=== PATIENT | male | born 1990 | race Caucasian/White ===

== ENCOUNTER 2025-03-05 16:34 | Emergency (ER) | payer BC, SELFPAY ==
--- NOTE | ~2025-03-05 | XR_ITS ---
CLINICAL HISTORY: heard pop left lower back lifting weights 3 views lumbar spine Comparison: None provided Findings: Normal vertebral body alignment. No acute fractures or dislocation. Vertebral body heights are well-maintained. Moderate narrowing with endplate spurring at L5-S1. Moderate facet arthrosis. IMPRESSION: 1. No acute fracture in the lumbar spine. 2. Moderate degenerative changes at L5-S1. This document has been electronically signed by: Mindy Garcia DO on 03/05/2025 19:46:34
[2025-03-05 16:44] VITALS: BP 134/74; PULSE 86; O2SAT 98
[2025-03-05 16:45] VITALS: BP 130/81; PULSE 78; RESP 18; TEMP 36.4; O2SAT 95; BMI 31.7
--- OUTSIDE RECORDS SUMMARY | 2025-03-05 17:06 | XMS_ITS | Clinical Summary ---
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 18 g Active acyclovir (ZOVIRAX) 5 % cream Apply topically daily as needed. Active Active Problems Problem Noted Date Diagnosed Date Epistaxis 07/21/2024 Assessment & Plan (07/21/2024 3:26 PM EST): Frequent nosebleeds with complaints of lesion in left nare. He is using Flonase inconsistently. I have recommended he discontinue Flonase and begin using a humidifier nightly. Encouraged to stop picking! Referral placed to ENT. Elevated LFTs 07/21/2024 Assessment & Plan (07/21/2024 3:17 PM EST): Reports elevated LFTs in past, suspected to be hepatic steatosis. I have asked him to go for lab work today. Other headache syndrome 07/21/2024 Assessment & Plan (09/30/2024 2:37 PM EST): Jh presents for increased frequency of headaches. No red flag symptoms. ? Increase after muscular strain in neck. Encouraged to begin gentle stretching of head, neck, and shoulders. Discussed can try stronger treatment to break the headache. Advised can take ibuprofen 600mg, acetaminophen 1000mg, and Benadryl 25mg together. Also, discussed can try beginning magnesium 400mg nightly for prophylaxis. Given his has been occurring for only a week and symptoms are mild will hold on on further diagnostics/prescription management and he is agreeable. Encouraged to follow up if symptoms fail to improve or worsen. Assessment & Plan (07/21/2024 3:25 PM EST): Infrequent, worse with stress. Encouraged to work on stress reduction. Encouraged to get adequate sleep and stay hydrated. Relieved with ibuprofen. Will continue to monitor. Cubital tunnel syndrome on left 07/31/2023 Onychomycosis 04/25/2014 Herpes labialis 02/09/2014 Encounters Date Type Department Care Team Description 01/06/2025 11:50 AM EDT Office Visit [facility] [address] [address] Daniella Guaman, JC Bilateral otitis media, unspecified otitis media type (Primary Dx); Cough; Acute upper respiratory infection from Last 3 Months Immunizations Immunization Administration Dates Next Due Influenza Quadrivalent MDCK Preservative Free IM 08/20/2023 Td (adult),2 Lf Tetanus Toxoid, PF, Adsorbed 07/2012 Tdap 07/21/2024,04/25/2014 Social History Tobacco Use Types Packs/Day Years Used Date Smoking Tobacco: Never Smokeless Tobacco: Never Tobacco Cessation:Counseling Given: Not Answered Alcohol Use Standard Drinks/Week Comments Yes 0 (1 standard drink = 0.6 oz pur e alcohol) 4-5 per week Child or Family Care Answer Date Record ed Do you have problems with on e of the following making it difficult for you to work, study, or receive health care? No 07/21/2024 Education Answer Date Recorded Are you interested in help w ith more adult education (for example, completing high school, GED, job training, learning the [place] language, technical skills, or developing parenting skills)? No 07/21/2024 Are you concerned about learning? Not on file 07/21/2024 No 07/21/2024 Yes 07/21/2024 Food Answer Date Recorded Within the past 6 months we worried whether our food would run out before we got money to buy more. Never True 07/21/2024 Within the past 6 months the food we bought just didn't last and we didn't have enough money to get more. Never True Residential Stability Answer Date Recor ded What is your housing situation today? I have randy lopez 07/21/2024 How many times have you move d in the past 12 months? Zero (I did not move) 07/21/2024 Paying for Meds Answer Date Recorded Do you have trouble paying for medicines? No 07/21/2024 Paying Utility Bills Answer Date Record ed Do you have trouble paying your heating or elect ricity bill? No 07/21/2024 Transportation Answer Date Recorded Has the lack of transportati on kept you from medical appointments or from getting medications? No 07/21/2024 Unemployment Answer Date Recorded Are you currently unemployed or working on a part-time or temporary basis, and looking for work? No 07/21/2024 Digital Access Answer Date Recorded No 07/21/2024 Yes 07/21/2024 Do you have reliable internet access at home? Ye s 07/21/2024 Do you have a device (e.g., phone, tablet, computer) with a working camera? Yes 07/21/2024 Intimate Partner Violence Answer Date R ecorded Are you denied basic needs s uch as food, clothing, or medical care? No 07/21/2024 In the past 12 months have y ou been in a relationship with a person who hurts, threatens, or tries to control you? No 07/21/2024 Are you denied basic needs s uch as food, clothing, or medical care? No 07/21/2024 In the past 12 months have y ou been in a relationship with a person who hurts, threatens, or tries to control you? No 07/21/2024 Sex and Gender Information Value Date Recorded Sex Assigned at Male 11/08/2023 6:42 PM EDT Legal Sex Male 9:04 PM EDT Gender Identity Male 11/08/2023 6:42 PM EDT Sexual Orientation Not on file Last Filed Vital Signs Vital Sign Reading Time Taken Comments Blood Pressure 132/93 01/06/2025 12:01 PM EDT Pulse 80 01/06/2025 11:50 AM EDT Temperature 36.6 C (97.8 F) 01/06/2025 11:50 AM EDT Respiratory Rate 16 01/06/2025 11:50 AM EDT Oxygen Saturation 95% 01/06/2025 11:50 AM EDT Inhaled Oxygen Concentration - - Weight 90.7 kg (200 lb) 01/06/2025 11:50 AM EDT Height 175.3 cm (5' 9 ) 01/06/2025 11:50 AM EDT Body Mass Index 29.53 01/06/2025 11:50 AM EDT Plan of Treatment Health Maintenance Due Date Last Done Comments COVID-19 VACCINE (2023-2 5 season) 2024 08/21/2021, 11/15/2020, 10/24/2020 DEPRESSION SCREENING 07/21/2025 07/21/2024 Adult Td,Tdap Booster 07/21/2034 07/21/2024 , 04/25/2014, 04/26/2013 HEPATITIS C SCREENING Completed 07/21/2024 HIV ONE-TIME SCREENING (18-6 5 YEARS) Completed 07/21/2024 SMOKING STATUS SCREENING (On ce After 26 Yrs) Completed 01/06/2025 HEPATITIS A VACCINES Aged Out No long er eligible based on patient's age to complete this topic HIB VACCINES Aged Out No longer eligi ble based on patient's age to complete this topic MENINGOCOCCAL VACCINES (ACWY) Aged Out No longer eligible based on patient's age to complete this topic MENINGOCOCCAL VACCINES (B) Aged Out N o longer eligible based on patient's age to complete this topic PNEUMOCOCCAL VACCINES (0-49 years) Aged Out No longer eligible b ased on patient's age to complete this topic Medical Devices Not on file Procedures Procedure Name Priority Date/Time Associated Diagnosis Comments POCT RAPID STREP A Routine 01/06/2025 12 :08 PM EDT Cough POCT COVID-19 RT-PCR/INFLUENZA A & B/RSV CEPHEID Routine 01/06/2025 12:06 PM EDT Cough HEPATITIS C ANTIBODY, QUALITATIVE Routine 07/21/2024 2:59 PM EST Screen for STD (sexually transmitted disease) from Last 3 Months or Most Recently Relevant to Health Maintenance Results * POCT Rapid Strep A (01/06/2025 12:08 PM EDT) [facility] Strep A, PCR Not Detected Not Detected [facility] [place] 01/06/2025 12:0 8 PM EDT 01/06/2025 12:36 PM EDT Daniella Guaman CNP POINT OF CARE TEST ORDE RABLES Final Result [facility] [address] [address], [facility] [phone] * POCT COVID-19 RT-PCR/Influenza A & B/RSV (Cepheid) (01/06/2025 12:06 PM EDT) [facility] RSV PCR Negative Negative [facility] [place] SARS-CoV-2 (COVID-19) Negative Negative [facility] [place] POC Influenza A PCR Negative Negative [facility] [place] POC Influenza B PCR Negative Negative [facility] [place] 01/06/2025 12:0 6 PM EDT 01/06/2025 12:47 PM EDT Daniella Guaman CNP POINT OF CARE TEST ORDE RABLES Final Result [facility] [address] [address], [facility] [phone] * Hepatitis C antibody, qualitative (07/21/2024 2:59 PM EST) [facility] HCV NON-REACTIV E NON-REACTI VE [facility] Blood 07/21/2024 2:59 PM EST 07/21/2024 3:04 PM EST Shonna Travis FLIGHT PHYSICIAN LAB BLOOD ORDERABLES Final R esult [address] [address] from Last 3 Months or Most Recently Relevant to Health Maintenance [place] [address] [place] [address] [facility] [address] [address] [place] [address] [facility] [place] [address] [place] [address] [place] [address] Care Teams Veneer Taping Machine Offbearer Relationship Specialty Start Date End Date Shonna RoblesJC [address] [facility], [facility] [address] [place] [address] [email or web address] PCP - General Nurse Practitioner 07/21/24 Jeremy Gross MD [address] [facility], [facility] [address] [place] [address] [email or web address] Insurance Assigned Provider 10/30/24 Additional Source Comments The information contained in this document represents components of the legal health record. It is not the complete legal health record.[facility]
[2025-03-05 18:19] VITALS: BP 122/79; PULSE 79; RESP 16; O2SAT 98
--- NOTE | 2025-03-05 18:39 | ED_ITS ---
HPI - Back Pain/Injury General Chief Complaint: Back Pain/Injury Stated Complaint: back pain after gym session Time Seen by Provider: 03/05/25 18:21 Source: patient and EMS Mode of arrival: EMS Limitations: no limitations History of Present Illness ED Provider: EDNA DIAZ PA-C HPI Narrative: 34 year old male with no significant pmhx presents to ED today via EMS for evaluation of low back pain x1 hour. 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 Pain radiates into his left thigh. Reports falling to the ground due to the pain. No head strike, no LOC. He is not on thinners. A bystander at the gym called EMS and he was transported to the ED for further evaluation. At present, pain in lower back remains with radiation to left thigh. Pain is described as sharp, constant, and close to midline but slightly to the left. Pain is worse with any movement. 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 Denies hx of IVDU. Denies hx of spinal surgery. Denies fever, chills, neck pain, bowel or bladder incontinence or retention, numbness/tingling/weakness in the lower extremities, dysuria, hematuria, saddle anesthesia. Related Data Previous Rx's ?Medication ?Instructions ?Recorded cyclobenzaprine 5 mg tablet 5 mg PO Q8H 3 days #9 tabs 03/05/25 lidocaine 5 % topical patch 1 patch topical DAILY #15 ea 03/05/25 (Lidoderm) Allergies Allergy/AdvReac Type Severity Reaction Status Date / Time No Known Allergies Allergy Unverified 03/05/25 16:51 Review of Systems Review of Systems: Constitutional: No fever, chills, fatigue, night sweats, weight changes ENT/Mouth: No ear pain, hearing loss, nasal congestion, sinus pain, rhinorrhea, sore throat Eyes: No eye pain, swelling, redness, vision changes, discharge Cardio: No chest pain, palpitations, PRICE, orthopnea, peripheral edema Pulm: No SOB, cough, sputum, wheezing, dyspnea, hemoptysis GI: No nausea, vomiting, hematemesis, abdominal pain, diarrhea, constipation, hematochezia, melena : No irregular bleeding, dysuria, frequency, urgency, hesitancy, hematuria, flank pain, urinary flow changes, urinary incontinence or retention MSK: +back pain, No neck pain, joint pain, myalgias Skin: No lesions, rashes Neuro: No weakness, numbness, paresthesias, LOC, dizziness, headache All other systems reviewed and are negative. [facility] Past Medical History Attestation statement: The following information was validated with the patient. Source: old records reviewed and nursing notes reviewed Physical Exam Vital Signs: Vital Signs: Last Vital Signs Temp 97.8 F 03/05/25 21:12 Pulse 72 03/05/25 21:12 Resp 16 03/05/25 21:12 BP 137/80 03/05/25 21:12 Pulse Ox 96 03/05/25 21:12 O2 Del Method Room Air 03/05/25 21:12 BMI result Body Mass Index 31.7 vital signs stable General: Well appearing, in no acute distress. Skin: Warm, dry, intact. No rashes or lesions. Head: Normocephalic, atraumatic. EENT: Hearing is intact b/l. Cardiac: Chest wall symmetric. RRR. Lungs: Normal respiratory effort without accessory muscle use. Back: Tenderness to palpation over midline lumbar region/ left lumbar paraspinal region at L2/L3 level. No step off deformity. Ext: Upper and lower extremities atraumatic, without tenderness, deformity, swelling or erythema. Strength 5/5 to upper extremities. difficult to assess strength of left leg unwilling to lift. + straight leg raise to left Neuro: AOx3. Normal speech. CN 2-12 grossly intact.. No saddle anesthesia. Sensation intact to light touch Course Course Course Narrative: xr lumbar spine unremarkable. concern for lumbar strain/ lumbar radiculopathy. patient treated with toradol + lido patch + flexeril with improvment. able to stand and ambulate with steady gait. no neuro deficits. will send him home with pain control + PCP follow up. his friend who is at bedside will be driving him home today. Patient has remained stable throughout ED visit today. Discussed worrisome signs and symptoms and when to return to the ED. All questions answered at this time. Patient is agreeable with disposition and stable for discharge. Medications Administered Discontinued Medications Generic Name Dose Route Start Last Admin Trade Name Freq PRN Reason Stop Dose Admin Cyclobenzaprine HCl 10 mg 03/05/25 18:50 03/05/25 19:28 Cyclobenzaprine Hcl 10 Mg Tablet PO 03/05/25 18:51 10 mg ONCE ONE Administration Ketorolac Tromethamine 30 mg 03/05/25 18:50 03/05/25 19:28 Ketorolac Tromethamine 30 Mg/Ml Vial IM 03/05/25 18:51 30 mg ONCE ONE Administration Lidocaine 1 patch 03/05/25 18:50 03/05/25 19:27 Lidocaine 4 % Patch Adh..Patch TRANSDERMA 03/05/25 18:51 1 patch ONCE ONE Administration Protocol Medical Decision Making Medical Decision Making MDM Narrative: 34 year old male with no significant pmhx presents to ED today via EMS for evaluation of low back pain x1 hour. Vital signs stable. uncomfortable appearing however in nad. Physical exam relevant for + straight leg on left with te nderness to palpation at L2-L3 level to the left of midline. Concern for MSK sprain/strain, fracture, subluxation, disc herniation, sciatica. Unlikely cord compression, cauda equina, Guillain-[place], epidural abscess. Plan for imaging, pain control, and re-evaluation. Differential Diagnosis Differential Diagnoses: The differential diagnosis associated with the presentation includes as above Admission/Observation Not indicated. Independent Interpretation I performed an independent interpretation of an: Plain X-Ray Interpretation: xr lumbar spine without fracture Radiology Impression Discussion of test interpretation with radiology: I have reviewed the radiologist's reading. Radiologist Impression: Procedure(s): XR lumbar spine 2-3V Accession Number(s): [id number] cc: Physician,Unknown ; Edna Diaz~ CLINICAL HISTORY: heard pop left lower back lifting weights 3 views lumbar spine Comparison: None provided Findings: Normal vertebral body alignment. No acute fractures or dislocation. Vertebral body heights are well-maintained. Moderate narrowing with endplate spurring at L5-S1. Moderate facet arthrosis. IMPRESSION: 1. No acute fracture in the lumbar spine. 2. Moderate degenerative changes at L5-S1. This document has been electronically signed by: Mindy Garcia DO on 03/05/2025 19:46:34 Independent Historian Clinical information obtained from an independent historian. History obtained fr om or confirmed by: EMS External Record Review External record reviewed: Inpatient record Prescription Management I considered prescription management with: Pain Medication and Other (Muscle relaxer) Social Determinants Patient?s care significantly limited by Social Determinants of Health including: Other Social Determinant of Health Critical Care Time Critical Care Time Critical Care Time: No Discharge Plan Discharge Clinical Impression: Strain of lumbar region Patient Disposition: Home, Self-Care Instructions: Low Back Strain (ED), Lower Back Exercises (ED) Additional Instructions: You were evaluated in the Emergency Department today for your back pain.? Your evaluation did not show signs of medical conditions requiring emergent intervention at this time. Avoid bending, lifting, or twisting. Use ice several times per day for 20 minutes at a time for the next 48 hours and then change to heat. I recommend you take 600mg ibuprofen every 6 hours or tylenol 650mg every 6 hours as needed for pain. If needed, you can alternate these medications so that you take one medication every 3 hours. For example, at noon take ibuprofen, then at 3pm take tylenol, then at 6pm take ibuprofen. Flexeril is a muscle relaxer. Take this at night as it makes you drowsy. Do not drive, drink alcohol, or operate machinery while taking it. Lidoderm patches are numbing patches. Apply to painful areas. Please schedule an appointment for follow-up with your primary care provider this week for further evaluation of your symptoms. Return to the Emergency Department if you experience worsening back pain, difficulty walking, fevers, numbness, tingling, incontinence, or any other concerning symptoms. In the case of an emergency call 911. Prescriptions: New cyclobenzaprine 5 mg tablet 5 mg PO Q8H 3 Days Qty: 9 0RF lidocaine [Lidoderm] 5 % adhesive patch,medicated 1 patch topical DAILY Qty: 15 0RF Rx Instructions: leave on most painful area for up to 12 hrs Referrals: Physician,Devonte J [Primary Care Provider, Medical] Interventions: ED Discharge Assessment Last Done: 03/05/25 21:12 Discharge Date/Time: 03/05/25 21:13 Print Language: Dominican
[2025-03-05] MEDS: Lidocaine 4 % Patch ADH..PATCH 1 PATCH TRANSDERMA (19:27)
[2025-03-05 21:12] VITALS: BP 137/80; PULSE 72; RESP 16; TEMP 36.6; O2SAT 96
== END 2025-03-05 21:13 | disposition home or self-care (01) ==
PROVIDERS: Emergency Provider Emergency Medicine Emergency Medical Services
DX: S39.012A Strain of muscle, fascia and tendon of lower back, initial encounter (principal); M79.605 Pain in left leg; X58.XXXA Exposure to other specified factors, initial encounter; Y93.9 Activity, unspecified; Y92.9 Unspecified place or not applicable; Y99.8 Other external cause status
CPT/HCPCS: 72100; 96372; 99284; J1885

== ENCOUNTER → 2025-03-05 18:59 | Outpatient (BNV) | payer BC, SELFPAY | PROVIDERS: Emergency Provider Emergency Medicine Emergency Medical Services; Visit Provider Radiology Diagnostic Radiology | DX: M51.360 Other intervertebral disc degeneration, lumbar region with discogenic back pain only (principal) | CPT/HCPCS: 72100 ==